=== PATIENT | male | born 1990 | race Caucasian/White ===

== ENCOUNTER → 2019-03-02 09:22 | Outpatient (CLI) | payer OTHER, SELFPAY ==
--- NOTE | 2019-03-02 | DI.MRI.S_ITS ---
PROCEDURE: MR WRIST RT WO CON INDICATIONS: Other synovitis and tenosynovitis, other site TECHNIQUE: Noncontrast coronal proton density fast spin echo and T2 fast spin echo with fat saturation; coronal 3-D gradient echo, axial T1 spin echo and T2 fast spin echo with fat saturation, sagittal T1 spin echo through the wrist. COMPARISON: None. FINDINGS: Image quality: Excellent. Bones and cartilage: The carpal bones are normally aligned. No bone marrow contusions or fractures. No evidence for avascular necrosis. Overlying cartilage surfaces appear normal. Presumed mild degenerative cystic change in the lunate. Carpal ligaments: The scapholunate and lunotriquetral ligaments appear intact. In the absence of intra-articular contrast, the extrinsic carpal ligaments are not well identified. On sagittal images, the pisohamate ligament appears intact. Triangular fibrocartilage complex: The triangular fibrocartilage appears intact. The adjacent meniscal homolog appears normal in the absence of intra-articular contrast. The extensor carpi ulnaris tendon is normal in location and morphology. Tendons and soft tissues: The carpal tunnel structures appear normal, including the median nerve. The ulnar nerve appears normal within Guyon's canal. There is mild intermediate signal change involving the abductor pollicis longus and extensor pollicis brevis tendons although no definite enlargement or T2 hyperintensity. This could be related to low grade chronic tendinopathy. No evidence of tenosynovitis There is fluid adjacent to the extensor carpi radialis longus and brevis tendons. This suggests tenosynovitis. There is also trace fluid adjacent to the extensor digitorum tendon slips. 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 Extensor carpi radialis longus and brevis tenosynovitis Trace extensor digitorum tenosynovitis Dictated by: Migue Romo M.D. on 03/02/2019 at 11:11 Approved by: Migue Romo M.D. on 03/02/2019 at 11:49
== END ==
PROVIDERS: Visit Provider Student in an Organized Health Care Education/Training Program
DX: M65.831 Other synovitis and tenosynovitis, right forearm (principal)
CPT/HCPCS: 73221

== ENCOUNTER → 2021-10-28 08:39 | Outpatient (CLI) | payer OTHER, SELFPAY ==
--- NOTE | 2021-10-28 | DI.RAD.S_ITS ---
PROCEDURE: [place] WRIST INJECTION MR/CT RT INDICATIONS: RIGHT WRIST PAIN COMPARISON: [facility], [place], XR WRIST 3+ VIEWS RIGHT, 10/17/2021, 11:50. TECHNIQUE: After informed consent had been obtained, the wrist was examined fluoroscopically, and a site chosen for injection of the radiocarpal compartment from a dorsal approach. Skin was prepped and draped in a sterile fashion and 1% lidocaine infiltrated from the skin down to the articular surface. A hypodermic needle was then introduced into the articular space and a modest amount of contrast medium was instilled confirming intra-articular needle tip placement. This was followed by approximately 4 mL of a dilute gadolinium solution. Needle was removed and dressing was applied. The patient experienced no complications throughout the procedure and left the fluoroscopic suite in no apparent distress. FINDINGS: A single fluoroscopic spot image demonstrates intra-articular location to injected iodinated contrast. IMPRESSION: Successful fluoroscopic-guided administration of dilute Gadolinium solution for wrist MR arthrogram. Dictated by: Ten Bob M.D. on 10/28/2021 at 10:41 Approved by: Ten Bob M.D. on 10/28/2021 at 10:43
--- NOTE | 2021-10-28 | DI.MRI.S_ITS ---
PROCEDURE: MR WRIST RT W CON INDICATIONS: RIGHT WRIST PAIN TECHNIQUE: After the administration of 3-4 mL of dilute intra-articular Gadolinium contrast into the radiocarpal compartment, coronal T1 spin echo with fat saturation and T2 fast spin echo with fat saturation, axial T1 spin echo and T2 fast spin echo with fat saturation, sagittal T1 spin echo with and without fat saturation through the wrist. COMPARISON: [facility], MR, MR WRIST RT WO CON, 03/02/2019, 9:49. [facility], CR, XR WRIST 3+ VIEWS RIGHT, 10/17/2021, 11:50. [facility], [place], [place] WRIST INJECTION MR/CT RT, 10/28/2021, 9:27. FINDINGS: Image quality: Excellent. Bones and cartilage: The carpal bones are normally aligned. No bone marrow contusions or fractures. No evidence for avascular necrosis. Circumscribed cystic changes are seen at the radial aspect of the lunate with minimal osseous edema, similar when compared to the prior MRI from 03/02/2019.. Carpal ligaments: The scapholunate and lunotriquetral ligaments appear intact, without gadolinium extravasation into the mid-carpal compartment. On sagittal images, the pisohamate ligament appears intact. Triangular fibrocartilage complex: The triangular fibrocartilage disc, with its styloid and foveal lamina, appears intact. No gadolinium extravasation into the distal radioulnar joint. Tendons and soft tissues: There is mild volar bowing of the flexor retinaculum. The median nerve appears mildly thickened at the carpal tunnel inlet and mildly flattened and hyperintense within the distal carpal tunnel. The flexor tendons are intact. The ulnar nerve appears normal within Guyon's canal. There is moderate extensor carpi ulnaris tendinosis. Fluid within the 2nd and 3rd extensor compartments is most likely related to the arthrogram injection. The remaining extensor tendon compartments demonstrate normal morphology, without pathologic tendon sheath fluid. A communicating ganglion cyst is seen at the volar radial aspect of the radiocarpal joint measuring up to 16 x 4 x 4 mm. IMPRESSION: 1. Moderate extensor carpi ulnaris tendinosis. 2. Mild volar bowing of the flexor retinaculum and slight thickening of the median nerve are nonspecific, but can be seen in the setting of carpal tunnel syndrome. Recommend correlation with neurologic exam findings. 3. Mild chronic degenerative cystic changes in the lunate. 4. Communicating ganglion cysts versus loculated joint fluid at the volar aspect of the radiocarpal joint measuring up to 16 mm. 5. No acute trabecular bone injury. No significant ligament injury or extravasation of radiocarpal contrast material. Dictated by: Ten Bob M.D. on 10/28/2021 at 13:42 Approved by: Ten Bob M.D. on 10/28/2021 at 13:51
== END ==
PROVIDERS: Referring Provider Orthopaedic Surgery; Visit Provider Orthopaedic Surgery
DX: M25.531 Pain in right wrist (principal)
CPT/HCPCS: 20605; 73222; 77002

== ENCOUNTER → 2023-01-27 | Outpatient (CLI) | payer OTHER, SELFPAY ==
--- NOTE | 2023-01-27 | DI.US.S_ITS ---
PROCEDURE: US ABDOMEN LIMITED INDICATIONS: ABNORMAL LIVER FUNCTION TESTS TECHNIQUE: Real-time scanning was performed of the abdominal and retroperitoneal organs, with image documentation. COMPARISON: None. FINDINGS: Liver: Mildly enlarged at 17.8 cm. The liver is increased in echogenicity, most consistent with hepatic steatosis. Large area of fatty sparing involving the right and left hepatic lobes measuring up to 11.7 cm. Gallbladder: No gallstones. No wall thickening. No pericholecystic edema. Negative sonographic Reed's sign. Biliary ducts: Intrahepatic bile ducts are non-dilated. Common bile duct is not well seen Pancreas: Visualized portions of the pancreas are sonographically normal. Body and tail are not well seen secondary to overlying bowel gas. Miscellaneous: No free abdominal fluid. IMPRESSION: The liver is mildly enlarged. Increased hepatic echogenicity noted possibly related to hepatic steatosis but other sources of hepatocellular disease or hepatic cirrhosis cannot be excluded. Recommend clinical correlation. Dictated by: Kevin Hurtado M.D. on 01/27/2023 at 10:52 Approved by: Kevin Hurtado M.D. on 01/27/2023 at 10:54
== END ==
PROVIDERS: PCP Nurse Practitioner Family; Referring Provider Nurse Practitioner Family; Visit Provider Nurse Practitioner Family
DX: R94.5 Abnormal results of liver function studies (principal); R16.0 Hepatomegaly, not elsewhere classified
CPT/HCPCS: 76705